=== PATIENT | female | born 1985 | race American Indian/Alaskan Native ===

== ENCOUNTER 2016-12-28 22:04 | Emergency (ER) | payer SELFPAY ==
[2016-12-28] MEDS ORDERED: Oxycodone/Acetaminophen 5/325 mg Tab PO STA (23:18)
--- NOTE | 2016-12-28 23:20 | C.PDOC ---
History Of Present Illness 31 year old female presents to the ED with complaints for evaluation of right lower wisdom tooth pain that has developed gradually over the past three days. Patient describes pain as localized intermittent pain to the right ear. Patient denies fever, chills, headache, facial swelling, drooling, trismus,sore throat, cough, dyspnea, or recent dental work. Ambulate to Ed for evaluation, appears in pain. Time Seen by Provider: 12/28/16 23:02 Chief Complaint (Nursing): Dental Pain History Per: Patient History/Exam Limitations: no limitations Onset/Duration Of Symptoms: Days Current Symptoms Are (Timing): Still Present Quality: Positive for: Aching Past Medical History Reviewed: Historical Data, Nursing Documentation, Vital Signs Vital Signs: Last Vital Signs Temp 97.9 F 12/29/16 00:06 Pulse 62 12/29/16 00:06 Resp 20 12/29/16 00:06 BP 100/63 12/29/16 00:06 Pulse Ox 100 12/29/16 00:06 Family History: States: Unknown Family Hx - Social History Hx Tobacco Use: No Hx Alcohol Use: No Hx Substance Use: No - Immunization History Hx Tetanus Toxoid Vaccination: No Hx Influenza Vaccination: No Hx Pneumococcal Vaccination: No Review Of Systems Constitutional: Negative for: Fever, Chills Gastrointestinal: Negative for: Nausea, Vomiting Physical Exam - Physical Exam Appears: Well, Non-toxic Skin: Warm, Dry, No Rash Head: Normacephalic Eye(s): bilateral: Normal Inspection Ear(s): Bilateral: Normal Nose: Normal, No Discharge Oral Mucosa: Moist, No Drooling Tongue: Normal Appearing Lips: Normal Appearing Teeth: Tender To Palpation (mild tenderness to percussion to right lower wisdom tooth ) Gingiva: Erythema (right lower wisdom tooth), Swelling (Right lower wisdom tooth ), No Bleeding, No Abscess Throat: Normal, No Erythema, No Exudate, No Drooling, Other (uvula midline, no edema.) Neck: Normal, Normal ROM, Supple Lymphatic: Normal Exam Chest: Symmetrical Respiratory: Normal Breath Sounds, No Stridor, No Wheezing Extremity: Normal ROM Neurological/Psych: Oriented x3, Normal Speech ED Course And Treatment O2 Sat by Pulse Oximetry: 99 Pulse Ox Interpretation: Normal Progress Note: Pt denies known allergy to penicillin or any other medication. On re-eavluation, pt is afebrile, hemodynamicaly s table. non-toxic. Tolerate po well in Ed. PulseOx 99% RA. ENT: exam c/w Right lower wisdom toothache with gingivitis. No evidence of tooth abscess. uvula midline, no edema, No drooling, no trismus. Lungs: CTA B/L, BS equal B/L. Pt advised. ref. to f/u with Dentist in 1-2 days for re-eavl. return if any new changes Disposition Counseled Patient/Family Regarding: Studies Performed, Diagnosis, Need For Followup, Rx Given - Disposition Referrals: [facility] [Provider Group] [facility] [Provider Group] Disposition: HOME/ ROUTINE Disposition Time: 23:19 Condition: STABLE Additional Instructions: Take medication as prescribed Follow up with Dentist in 2-3 days for re-evaluation. Return to Ed if any new changes. Prescriptions: Penicillin VK [Pen-Vee K] 2 tab PO BID #28 tab traMADol [Ultram] 50 mg PO TID #7 tab Instructions: Dental Caries (ED), Toothache (ED) - Clinical Impression Clinical Impression: Dental caries, Gingivitis - Scribe Statement The provider has reviewed the documentation as recorded by the Scribe Eleonora Kidd All medical record entries made by the Abelibronda were at my direction and personally dictated by me. I have reviewed the chart and agree that the record accurately reflects my personal performance of the history, physical exam, medical decision making, and the department course for this patient. I have also personally directed, reviewed, and agree with the discharge instructions and disposition.
[2016-12-28] MEDS ORDERED: Oxycodone/Acetaminophen 5/325 mg Tab ONE (23:25)
[2016-12-29 00:06] VITALS: BP 100/63; PULSE 62; RESP 20; TEMP 97.9
[2016-12-31 23:18] VITALS: O2SAT 99
== END 2016-12-29 00:06 | disposition home or self-care (01) ==
LOC: C.ER 22:04
DX: K02.9 Dental caries, unspecified (principal); K05.10 Chronic gingivitis, plaque induced

== ENCOUNTER 2018-05-22 20:36 | Emergency (ER) | payer SELFPAY ==
[2018-05-22 20:44] VITALS: BP 117/76; PULSE 64; RESP 18; TEMP 98.4; O2SAT 99
[2018-05-22] MEDS ORDERED: Tetanus/Diphtheria Toxoids 0.5 ml Syringe IM ONE ×2 (21:04→21:19)
[2018-05-22] MEDS ORDERED: Lidocaine 2% Inj (20ml) INFIL ONE (21:04)
[2018-05-22] MEDS ORDERED: Lidocaine 2% MPF (5 ml) Inj ONE (21:08)
--- NOTE | 2018-05-22 21:20 | C.PDOC ---
History Of Present Illness 32 yo female BIBA for evaluation of Right wrist laceration sustained TIME BROKER at home. Pt reports, " drop spice blender by accident". Noted small laceration to Right wrist area. Pt denies deformity, weakness, sensory or vascular deficits to Right hand, denies wound discharge. Ambulate to ED for evaluation Time Seen by Provider: 05/22/18 20:51 Chief Complaint (Nursing): Upper Extremity Problem/Injury History Per: Patient Past Medical History Reviewed: Historical Data, Nursing Documentation, Vital Signs Vital Signs: Last Vital Signs Temp 98.4 F 05/22/18 20:41 Pulse 64 05/22/18 20:41 Resp 18 05/22/18 20:41 BP 117/76 05/22/18 20:41 Pulse Ox 99 05/22/18 21:24 - Medical History PMH: No Chronic Diseases Family History: States: Unknown Family Hx - Social History Hx Tobacco Use: No Hx Alcohol Use: No Hx Substance Use: No - Immunization History Hx Tetanus Toxoid Vaccination: No Hx Influenza Vaccination: No Hx Pneumococcal Vaccination: No Review Of Systems Except As Marked, All Systems Reviewed And Found Negative. Constitutional: Negative for: Fever, Chills Skin: Positive for: Lesions Neurological: Negative for: Weakness, Numbness Physical Exam - Physical Exam Appears: Well, Non-toxic, No Acute Distress Skin: Normal Color, Warm, Other (2cm cutaneous linear laceration over ulnar aspect Right wrist. NO palpable deformity, no edema, no wound discharge, no wound FB. No evidence of tendon or ligament injury.) Extremity: Normal ROM (Right wrist, no neurovascular deficits.), No Tenderness, Capillary Refill (less than 2sec to Right hand), No Deformity, No Swelling Neurological/Psych: Oriented x3, Normal Speech, Normal Motor, Normal Sensation, Normal Reflexes ED Course And Treatment O2 Sat by Pulse Oximetry: 99 Progress Note: On re-eval, pt is afebrile, hemodynamicaly stable. NOn-toxic. Ambulatory in ED with stable gait. Right wrist: laceration repaired with sutures without difficulty. FAROM, no neurovascular deficits. tetanis given. Pt advised on wound care. ref. to f/uy with PMD in 2 days for wound check,. return if any wign of infection. Laceration - Laceration Repair Right wrist Wound Length (In cm): 2cm Description Of Wound: Linear Anesthesia: Lidocaine 2% Wound Examination: Irrigated With Saline, No FB With Wound Exploration, No Tendon Injury With Wound Exploration Wound Closure: Suture (#3) Suture Technique And Material Used: Interrupted, Nylon Wound Complexity: Simple Disposition Counseled Patient/Family Regarding: Diagnosis, Need For Followup - Disposition Referrals: [facility] [Outside] Disposition: HOME/ ROUTINE Disposition Time: 21:20 Condition: STABLE Additional Instructions: Keep wound dry, avoid water exposure for 2-3 days Antibiotic cream topically Suture removal in 7 days return to ED if any sign of infection or any other new changes, Instructions: Laceration Repair With Stitches (DC) Forms: [employer] (Japanese) - Clinical Impression Clinical Impression: Laceration of wrist
== END 2018-05-22 21:39 | disposition home or self-care (01) ==
LOC: C.ER 20:36
DX: S61.511A Laceration without foreign body of right wrist, initial encounter (principal); W22.8XXA Striking against or struck by other objects, initial encounter; Y92.009 Unspecified place in unspecified non-institutional (private) residence as the place of occurrence of the external cause; Z23 Encounter for immunization

== ENCOUNTER 2018-06-01 14:31 | Emergency (ER) | payer OTHER ==
[2018-06-01 15:01] VITALS: BP 114/74; PULSE 58; RESP 18; TEMP 98.7; O2SAT 100
--- NOTE | 2018-06-01 15:34 | C.PDOC ---
History Of Present Illness 32 year old female presents to the ED for suture removal in the right hand. Patient had sutures placed on 05/22/17. Patient denies new injury, fall, trauma , fever, chills. Time Seen by Provider: 06/01/18 15:02 Chief Complaint (Nursing): Wound Check History Per: Patient History/Exam Limitations: no limitations Onset/Duration Of Symptoms: Days Ago Current Symptoms Are (Timing): Better Location Of Injury: Right: Hand Recent travel outside of the [place]: No Additional History Per: Patient Past Medical History Reviewed: Historical Data, Nursing Documentation, Vital Signs Vital Signs: Last Vital Signs Temp 98.7 F 06/01/18 15:06 Pulse 58 L 06/01/18 15:06 Resp 18 06/01/18 15:06 BP 114/74 06/01/18 15:06 Pulse Ox 100 06/01/18 16:19 - Medical History PMH: No Chronic Diseases Surgical History: No Surg Hx Family History: States: Unknown Family Hx - Social History Hx Tobacco Use: No Hx Alcohol Use: No Hx Substance Use: No - Immunization History Hx Tetanus Toxoid Vaccination: No Hx Influenza Vaccination: No Hx Pneumococcal Vaccination: No Review Of Systems Constitutional: Negative for: Fever, Chills Cardiovascular: Negative for: Chest Pain, Palpitations Respiratory: Negative for: Cough, Shortness of Breath Gastrointestinal: Negative for: Nausea, Vomiting, Abdominal Pain Musculoskeletal: Negative for: Hand Pain Skin: Negative for: Rash Neurological: Negative for: Weakness, Numbness Physical Exam - Physical Exam Appears: Non-toxic, No Acute Distress Skin: Normal Color, Warm, Dry Head: Atraumatic, Normacephalic Eye(s): bilateral: Normal Inspection Extremity: Normal ROM, No Tenderness, Capillary Refill (< 2 seconds), No Swelling, Other (3 sutures well healed, clean and dry right hand) Pulses: Left Radial: Normal, Right Radial: Normal Neurological/Psych: Oriented x3, Normal Speech, Normal Motor, Normal Sensation Gait: Steady ED Course And Treatment O2 Sat by Pulse Oximetry: 100 (ON RA) Pulse Ox Interpretation: Normal Medical Decision Making Medical Decision Makin sutures removed with no difficulty, patient tolerated the procedure well. Disposition - Disposition Referrals: [facility] [Outside] Disposition: HOME/ ROUTINE Disposition Time: 15:32 Condition: GOOD Additional Instructions: Return if worsened. Instructions: Stitches Removal Forms: [facility] (Argentine) - Clinical Impression Clinical Impression: Visit for suture removal - PA / CDL SERVICE TECHNICIAN / Resident Statement MD/DO has reviewed & agrees with the documentation as recorded. - Scribe Statement The provider has reviewed the documentation as recorded by the Scribe Iggy Sosa All medical record entries made by the Scribe were at my direction and personally dictated by me. I have reviewed the chart and agree that the record accurately reflects my personal performance of the history, physical exam, medical decision making, and the department course for this patient. I have also personally directed, reviewed, and agree with the discharge instructions and disposition.
== END 2018-06-01 15:36 | disposition home or self-care (01) ==
LOC: C.ER 14:31
DX: Z48.02 Encounter for removal of sutures (principal)

== ENCOUNTER 2018-08-24 16:32 | Emergency (ER) | payer OTHER ==
[2018-08-24] MEDS ORDERED: Sodium Chloride 0.9% 1,000 ML IV ONE (17:04)
[2018-08-24 17:12] LABS: BASO # 0.1 K/uL (0.0-0.2); EOS # 0.1 K/uL (0.0-0.7); EOS % 1.9 % (0.0-4.0); HEMOGLOBIN 12.1 g/dL (11.0-16.0); LYMPH # 2.8 K/uL (1.0-4.3); LYMPH % 50.7 % (20.0-40.0); MEAN CELL VOLUME 92.9 fL (81.0-99.0); MEAN CORPUSCULAR HEMOGLOBIN 30.9 pg (27.0-31.0); MEAN CORPUSCULAR HGB CONC 33.2 g/dL (33.0-37.0); MEAN PLATELET VOLUME 9.4 fL (7.2-11.7); MONO # 0.4 K/uL (0.0-0.8); MONO % 6.4 % (0.0-10.0); NEUT # 2.2 K/uL (1.8-7.0); NRBC % 0.1 % (0.0-2.0); RBC 3.91 Mil/uL (3.80-5.20); RED CELL DISTRIBUTION WIDTH 12.9 % (11.5-14.5); WHITE BLOOD COUNT 5.5 K/uL (4.8-10.8)
--- NOTE | 2018-08-24 17:21 | C.PDOC ---
History Of Present Illness 32 y/o female presents to the ER complaining of dizziness which has been present since yesterday. Patient describes the dizziness as the "room spinning." Patient denies having headache, fever, chills, CP, SOB, nausea, and vomiting. Time Seen by Provider: 08/24/18 16:57 Chief Complaint (Nursing): Dizziness/Lightheaded History Per: Patient History/Exam Limitations: no limitations Onset/Duration Of Symptoms: Days Current Symptoms Are (Timing): Still Present Severity: Moderate Past Medical History Reviewed: Historical Data, Nursing Documentation, Vital Signs Vital Signs: Last Vital Signs Temp 98.2 F 08/24/18 16:33 Pulse 71 08/24/18 16:33 Resp 20 08/24/18 16:33 BP 111/68 08/24/18 16:33 Pulse Ox 99 08/24/18 16:33 - Medical History PMH: No Chronic Diseases Surgical History: No Surg Hx Family History: States: No Known Family Hx - Social History Hx Tobacco Use: No Hx Alcohol Use: No Hx Substance Use: No - Immunization History Hx Tetanus Toxoid Vaccination: No Hx Influenza Vaccination: No Hx Pneumococcal Vaccination: No Review Of Systems Except As Marked, All Systems Reviewed And Found Negative. Constitutional: Negative for: Fever, Chills Cardiovascular: Negative for: Chest Pain Respiratory: Negative for: Shortness of Breath Gastrointestinal: Negative for: Nausea, Vomiting Neurological: Positive for: Dizziness Physical Exam - Physical Exam Appears: Non-toxic, No Acute Distress Skin: Normal Color, Warm, Dry Head: Atraumatic, Normacephalic Eye(s): bilateral: Normal Inspection, PERRL, EOMI Nose: Normal Oral Mucosa: Moist Neck: Supple Chest: Symmetrical Cardiovascular: Rhythm Regular Respiratory: Normal Breath Sounds, No Rales, No Rhonchi, No Wheezing Gastrointestinal/Abdominal: Normal Exam, Soft, No Tenderness, No Guarding, No Rebound Neurological/Psych: Oriented x3, Normal Speech ED Course And Treatment - Laboratory Results Result Diagrams: 08/24/18 17:07 08/24/18 17:32 O2 Sat by Pulse Oximetry: 99 (RA) Pulse Ox Interpretation: Normal Progress Note: Labs, UA, and HCG-Qual. ordered.Patient treated with Meclizine PO and IV Fluids. Medical Decision Making Medical Decision Making: suspect perpherial vertigo. r/o anemai, metabolic etiology lasb urine neg. symptoms resolved. neuro intact . no villavicencio. advise outpt fu. states feels "much better" Disposition - Disposition Referrals: Guille Boyer MD [Staff Provider] - Disposition: HOME/ ROUTINE Disposition Time: 18:51 Condition: STABLE Additional Instructions: return to er with worsening symptoms or concerns. follow up with specialist. stephani leslie need further workup and testing as an outpatient. return to an y er with worsening symptoms or concerns. Prescriptions: RX: Meclizine [Meclizine*] 25 mg PO Q6 PRN #30 tab PRN Reason: Dizziness Instructions: Vertigo (a Type of Dizziness) (DC), Dizziness, Nonvertigo, (DC) Forms: [employer] (Slovenian) - Clinical Impression Clinical Impression: Dizziness - Scribe Statement The provider has reviewed the documentation as recorded by the Scribe Matt Lemon Provider Attestation: All medical record entries made by the Scribe were at my direction and personally dictated by me. I have reviewed the chart and agree that the record accurately reflects my personal performance of the history, physical exam, medical decision making, and the department course for this patient. I have also personally directed, reviewed, and agree with the discharge instructions and disposition.
[2018-08-24 17:29] LABS: INR 1.1; PROTHROMBIN TIME 11.7 SECONDS (9.7-12.2)
[2018-08-24 17:38] LABS: HCG,QUALITATIVE URINE NEGATIVE (NEGATIVE)
[2018-08-24 17:41] LABS: SQUAMOUS EPITHIAL < 1 /hpf (0-5); URINE BILIRUBIN NEGATIVE (NEGATIVE); URINE BLOOD 2+ (NEGATIVE); URINE CLARITY Clear (Clear); URINE COLOR Colorless (YELLOW); URINE GLUCOSE (UA) NORMAL (Normal); URINE HYALINE CAST 0-2 /lpf (0-2); URINE LEUKOCYTE ESTERASE NEG Leu/uL (Negative); URINE PROTEIN NEGATIVE (NEGATIVE); URINE UROBILINOGEN NORMAL mg/dL (0.2-1.0)
[2018-08-24 17:50] LABS: ALB/GLOB RATIO 1.1 (1.0-2.1); ALBUMIN 4.2 g/dL (3.5-5.0); ALT/SGPT 13 U/L (9-52); AST/SGOT 20 U/L (14-36); BLOOD UREA NITROGEN 11 mg/dL (7-17); CALCIUM 8.8 mg/dl (8.6-10.4); GFR NON-AFRICAN AMERICAN > 60
[2018-08-24 18:54] VITALS: BP 108/62; PULSE 74; RESP 18; TEMP 98.1
[2018-08-24 20:21] VITALS: O2SAT 99
== END 2018-08-24 18:53 | disposition home or self-care (01) ==
LOC: C.ER 16:32
DX: R42 Dizziness and giddiness (principal)
CPT/HCPCS: 36415; 80053; 81001; 82948; 84703; 85025; 85610; 85730; 96360; 99285; J7030

== ENCOUNTER 2018-10-14 11:00 | Emergency (ER) | payer OTHER, SELFPAY ==
[2018-10-14 11:52] VITALS: BP 98/65; PULSE 68; RESP 16; TEMP 98.4; O2SAT 99
--- NOTE | 2018-10-14 12:06 | C.PDOC ---
History Of Present Illness 33 year old female, with no significant past medical history, presents to the ED for evaluation of left lower molar tooth pain which began one week ago, but has been worse over the past two days. Patient denies fever, chills, headache, nausea, vomiting. She states her last menstrual period was 12/3. Time Seen by Provider: 10/14/18 11:05 Chief Complaint (Nursing): Dental Pain History Per: Patient History/Exam Limitations: no limitations Onset/Duration Of Symptoms: Days (2), Other (one week) Current Symptoms Are (Timing): Worse Quality: Positive for: "Pain" Additional History Per: Patient Past Medical History Reviewed: Historical Data, Nursing Documentation, Vital Signs Vital Signs: Last Vital Signs Temp 98.8 F 10/14/18 11:06 Pulse 68 10/14/18 11:06 Resp 20 10/14/18 11:06 BP 113/66 10/14/18 11:06 Pulse Ox 99 10/14/18 11:06 - Medical History PMH: No Chronic Diseases Surgical History: No Surg Hx Family History: States: Unknown Family Hx - Social History Hx Tobacco Use: No Hx Alcohol Use: No Hx Substance Use: No - Immunization History Hx Tetanus Toxoid Vaccination: No Hx Influenza Vaccination: No Hx Pneumococcal Vaccination: No Review Of Systems Constitutional: Negative for: Fever, Chills ENT: Positive for: Mouth Pain (left lower molar ) Gastrointestinal: Negative for: Nausea, Vomiting Neurological: Negative for: Headache Physical Exam - Physical Exam Appears: Non-toxic, No Acute Distress Skin: Normal Color, Warm, Dry Head: Atraumatic, Normacephalic Eye(s): bilateral: Normal Inspection Oral Mucosa: Moist Teeth: Caries, Tender To Palpation (tooth #17), Loose (left lower molar, tooth #17) Gingiva: Tender (around tooth #17), No Abscess, Other (gingival inflammation surrouding tooth #17. no fluctuance ) Neck: Supple Neurological/Psych: Oriented x3, Normal Speech, Normal Cognition ED Course And Treatment O2 Sat by Pulse Oximetry: 99 (on RA) Pulse Ox Interpretation: Normal Disposition Counseled Patient/Family Regarding: Diagnosis - Disposition Disposition: HOME/ ROUTINE Disposition Time: 11:14 Condition: STABLE Additional Instructions: CASSI LANGFORD, thank you for letting us take care of you today. Your provider was Alondra Whitney MD and you were treated for TOOTH PAIN. The emergency medical care you received today was directed at your acute symptoms. If you were prescribed any medication, please fill it and take as directed. It may take several days for your symptoms to resolve. Return to the Emergency Department if your symptoms worsen, do not improve, or if you have any other problems. Please contact one of the dentists/clinics you have been referred to that are listed on the Patient Visit Information form that is included in your discharge packet. Bring any paperwork you were given at discharge with you along with any medications you are taking to your follow up visit. Our treatment cannot replace ongoing medical care by a primary care provider outside of the emergency department. Thank you for allowing the [facility] team to be part of your care today. Prescriptions: Ibuprofen [Motrin Tab] 800 mg PO TID PRN #30 tab PRN Reason: Pain, Moderate (4-7) Penicillin VK [Penicillin VK Tab] 500 mg PO QID #40 tab Instructions: Dental Pain (DC) Forms: [employer] (Wallisian) - POA Present On Arrival: None - Clinical Impression Clinical Impression: Toothache, Tooth loose - Scribe Statement The provider has reviewed the documentation as recorded by the Scribe (Paige Hanna) Provider Attestation: All medical record entries made by the Scribe were at my direction and personally dictated by me. I have reviewed the chart and agree that the record accurately reflects my personal performance of the history, physical exam, medical decision making, and the department course for this patient. I have also personally directed, reviewed, and agree with the discharge instructions and disposition.
== END 2018-10-14 11:30 | disposition home or self-care (01) ==
LOC: C.ER 11:00
DX: K08.89 Other specified disorders of teeth and supporting structures (principal)